=== PATIENT | male | born 1975 | race Caucasian/White ===

== ENCOUNTER 2018-04-09 09:01 | Emergency (ER) | payer MEDICARE, MEDICAID ==
[2018-04-09] MEDS ORDERED: Alum Hydrox/Mag Hydrox/Simeth 30 ML, Lidocaine 2% 15 ML PO ONE ×2 (10:13)
--- NOTE | 2018-04-09 11:46 | EDM.PDOC ---
ED HPI GENERAL MEDICAL PROBLEM - General Chief Complaint: General Stated Complaint: NOT FEELING WELL CHEST PAIN Time Seen by Provider: 04/09/18 10:14 Source of Information: Reports: Patient History Limitations: Reports: No Limitations - History of Present Illness INITIAL COMMENTS - FREE TEXT/NARRATIVE: He first told me he had chest pain but later said it was upper abdominal burning like heartburn and pointed to upper abd. He said it started 2 days ago after eating spicy foods. Hasn't taken anything for it. Throat Pain Score (Numeric/FACES): 8 - Related Data Allergies Allergy/AdvReac Type Severity Reaction Status Date / Time No Known Allergies Allergy Verified 04/09/18 09:28 Home Meds: Home Meds Aspirin [Adult Aspirin] 81 mg PO DAILY 04/09/18 [History] Cholecalciferol (Vitamin D3) [Vitamin D] 1,000 units PO DAILY 04/09/18 [History] Divalproex Sodium [Depakote] 250 mg PO BEDTIME 04/09/18 [History] Lisinopril 40 mg PO DAILY 04/09/18 [History] QUEtiapine [SEROquel XR] 50 mg PO BEDTIME 04/09/18 [History] Sertraline [Zoloft] 200 mg PO DAILY 04/09/18 [History] Simvastatin [Zocor] 40 mg PO BEDTIME 04/09/18 [History] metFORMIN [Glucophage] 500 mg PO BIDMEALS 04/09/18 [History] Past Medical History Cardiovascular History: Reports: High Cholesterol Musculoskeletal History: Reports: Back Pain, Chronic Neurological History: Reports: Seizure Psychiatric History: Reports: Anxiety Endocrine/Metabolic History: Reports: Diabetes, Type II Social & Family History - Tobacco Use Smoking Status *Q: Never Smoker Second Hand Smoke Exposure: No - Caffeine Use Caffeine Use: Reports: Coffee, Soda, Tea - Recreational Drug Use Recreational Drug Use: No ED ROS GENERAL - Review of Systems Review Of Systems: ROS reveals no pertinent complaints other than HPI. ED EXAM, GENERAL - Physical Exam Exam: See Below Exam Limited By: No Limitations General Appearance: Alert, WD/WN, No Apparent Distress Eye Exam: Bilateral Eye: Normal Inspection Neck: Normal Inspection Respiratory/Chest: Lungs Clear Cardiovascular: Regular Rate, Rhythm GI/Abdominal: Normal Bowel Sounds, Soft, Non-Tender Neurological: Alert, Oriented Skin Exam: Warm, Dry Course - Vital Signs Last Recorded V/S: Last Vital Signs Temp 36.3 C 04/09/18 11:02 Pulse 84 04/09/18 11:02 Resp 15 04/09/18 11:02 BP 92/58 L 04/09/18 11:02 Pulse Ox 95 04/09/18 11:02 - Orders/Labs/Meds Orders: Active Orders 24 hr Category Date Time Status EKG Documentation Completion [RC] ASDIRECTED Care 04/09/18 10:13 Active CULTURE STREP A CONFIRMATION [RM] Stat Lab 04/09/18 09:57 Results STREP SCRN A RAPID W CULT CONF [RM] Stat Lab 04/09/18 09:57 Ordered EKG 12 Lead [EK] Urgent Ther 04/09/18 10:13 Ordered Meds: Medications Discontinued Medications Generic Name Dose Route Start Last Admin Trade Name Tariqq PRN Reason Stop Dose Admin Al Hydroxide/Mg Hydroxide 30 0 ml 04/09/18 10:13 04/09/18 10:21 ml/ Lidocaine HCl 15 ml PO 04/09/18 10:14 45 ml ONETIME ONE Administration - Re-Assessments/Exams Free Text/Narrative Re-Assessment/Exam: 04/09/18 11:43 Ekg shows NSR at 77. normal QRS ST and T waves Good relief with GI cocktail Departure - Departure Time of Disposition: 11:44 Disposition: Home, Self-Care 01 Condition: Fair Clinical Impression: Gastritis - Discharge Information Referrals: PCP,None [Primary Care Provider] - Additional Instructions: Try using an antacid like TUMS. Take 3-4 tablets at same time. If this happens a lot you can try one of the acid medications like Zantac or Pepcid - My Orders Last 24 Hours: My Active Orders 04/09/18 09:57 CULTURE STREP A CONFIRMATION [RM] Stat STREP SCRN A RAPID W CULT CONF [RM] Stat 04/09/18 10:13 EKG Documentation Completion [RC] ASDIRECTED EKG 12 Lead [EK] Urgent - Assessment/Plan Last 24 Hours: My Active Orders 04/09/18 09:57 CULTURE STREP A CONFIRMATION [RM] Stat STREP SCRN A RAPID W CULT CONF [RM] Stat 04/09/18 10:13 EKG Documentation Completion [RC] ASDIRECTED EKG 12 Lead [EK] Urgent
== END 2018-04-09 11:53 | disposition home or self-care (01) ==
LOC: JP.ED 09:01
DX: K29.70 Gastritis, unspecified, without bleeding (principal); E11.9 Type 2 diabetes mellitus without complications; E78.00 Pure hypercholesterolemia, unspecified; Z79.82 Long term (current) use of aspirin; Z79.899 Other long term (current) drug therapy; Z79.84 Long term (current) use of oral hypoglycemic drugs
CPT/HCPCS: 87081; 87430; 93005; 99285; A9270